=== PATIENT | female | born 1935 | race Caucasian/White ===

== ENCOUNTER 2017-11-23 12:13 | Emergency (ER) | payer MEDICARE, SELFPAY ==
[2017-11-23] MEDS ORDERED: Adacel Vial IM ONE (12:36)
--- NOTE | 2017-11-23 12:42 | ERPHSYRPT ---
- History of Present Illness Time Seen by Provider: 11/23/17 12:30 Source: patient Exam Limitations: no limitations Physician History: Pt states, she tripped over her oxygen, injured her right elbow and right knee, denies head or other injury, no LOC, chest pain, vomiting, other complaints. She states, she does not remember when was her last tetanus, according to her family, she usually refuses it. Occurred: just prior to arrival Reason for Fall: tripped Injuries/Pain Location: upper extremity, lower extremity Loss of Consciousness: no loss of consciousness Quality: aching Severity of Pain-Max: mild Severity of Pain-Current: mild Modifying Factors: Improves With: movement Associated Symptoms (Fall): denies symptoms Allergies/Adverse Reactions: codeine Allergy (Mild, Verified 01/26/15 14:08) Difficulty Breathing niacin Allergy (Mild, Verified 01/26/15 14:08) Difficulty Breathing Penicillins Allergy (Mild, Verified 01/26/15 14:08) Difficulty Breathing Sulfa (Sulfonamide Antibiotics) Allergy (Mild, Verified 01/26/15 14:08) Difficulty Breathing hydromorphone HCl [From Dilaudid] Adverse Reaction (Verified 06/16/15 17:18) morphine Adverse Reaction (Verified 06/16/15 17:18) Home Medications: Aspirin [Aspirin EC] 81 mg PO HS 08/24/14 [History] Lisinopril 20 mg PO DAILY 08/24/14 [History] Simvastatin 20 mg PO HS 08/24/14 [History] Metoprolol Tartrate 50 mg [Lopressor 50 MG] 50 mg PO BID PRN 06/16/15 [ History] Hx Tetanus, Diphtheria Vaccination/Date Given: No Hx Influenza Vaccination/Date Given: No Hx Pneumococcal Vaccination/Date Given: No - Review of Systems Constitutional: No Symptoms Musculoskeletal: Other (right elbow skin tear and right knee sweling, pain) All Other Systems: Reviewed and Negative - Past Medical History Pertinent Past Medical History: No Neurological History: No Pertinent History ENT History: No Pertinent History Cardiac History: Other Respiratory History: No Pertinent History Endocrine Medical History: No Pertinent History Musculoskeletal History: Fractures, Osteoporosis, Other GI Medical History: Irritable Bowel History: No Pertinent History Psycho-Social History: No Pertinent History Female Reproductive Disorders: No Pertinent History Other Medical History: GEOVANY IN RIGHT SHOULDER; broke right wrist - Past Surgical History Past Surgical History: Yes Neuro Surgical History: No Pertinent History Cardiac: Valve Replacement Respiratory: No Pertinent History Gastrointestinal: Appendectomy, Cholecystectomy Genitourinary: No Pertinent History Musculoskeletal: Orthopedic Surgery Female Surgical History: Hysterectomy Other Surgical History: AORTIC VALVE REPLACEMTN. GEOVANY IN RIGHT SHOULDER PLACED - Social History Smoking Status: Former smoker Exposure to second hand smoke: No Drug Use: none Patient Lives Alone: No - Nursing Vital Signs Nursing Vital Signs: Initial Vital Signs Temperature 97.8 F 11/23/17 12:22 Pulse Rate 67 11/23/17 12:22 Respiratory Rate 16 11/23/17 12:22 Blood Pressure 160/69 11/23/17 12:22 O2 Sat by Pulse Oximetry 95 11/23/17 12:22 Pain Scale Pain Intensity 4 - [place] Coma Score Best Eye Response ([place]): (4) open spontaneously Best Verbal Response ([place]): (5) oriented Best Motor Response ([place]): (6) obeys commands [place] Total: 15 - Physical Exam General Appearance: no apparent distress, alert Head Injury: no evidence of injury Eye Exam: PERRL/EOMI, eyes nml inspection ENT Exam: airway nml, No evidence of ENT injury Neck Exam: supple, trachea midline, normal inspection, No muscle spasm, No pain on movement of neck, No tenderness Respiratory/Chest Exam: normal breath sounds, No chest tenderness, No respiratory distress, No ecchymosis Cardiovascular Exam: normal heart sounds, regular rate/rhythm, normal peripheral pulses, No murmur, No edema, No JVD Gastrointestinal Exam: soft, normal bowel sounds, No tenderness, No distention, No mass, No guarding, No ecchymosis, No rebound Extremity Exam: other (right olecranon: 3-4 cm skin tear, no deformity, or deep laceration, hematoma, good ROM, and distal pulses, right anterior knee: small, infrapatellar ecchymosis, no large hematoma, or deformity, painful ROM, good distal pulses.) Peripheral Pulses: dorsalis-pedis (R): 2+, dorsalis-pedis (L): 2+ Neurologic Exam: alert, oriented x 3, cooperative, normal mood/affect, No motor deficits Skin Exam: normal color, warm, dry SpO2 Interpretation: normal Oxygen Delivery: Nasal Cannula - Course Nursing assessment & vital signs reviewed: Yes - Radiology Exams Right Elbow X-ray Interpretation: Reviewed by me, Negative Right Knee X-ray Interpretation: Interpreted by me, Negative Ordered Tests: Active Orders 24 hr Category Date Time Status Wound Care STAT Care 11/23/17 13:21 Active ELBOW (MINIMUM 3 VIEWS) Stat Exams 11/23/17 12:35 Completed KNEE (3 VIEWS) Stat Exams 11/23/17 12:35 Completed Medication Summary Discontinued Medications Generic Name Dose Route Start Last Admin Trade Name Frantz PRN Reason Stop Dose Admin Diphtheria/Tetanus/Acell Pertussis 0.5 ml 11/23/17 12:36 11/23/17 12:59 Adacel Vial IM 11/23/17 12:37 Not Given .ONCE ONE - Progress Progress: unchanged Progress Note: 11/23/17 13:25 I informed patient and her about X ray report, she refused tetanus shot after being informed about the dangers of not receiving. She is being discharged in good condition, to follow up with her physician in 2-3 days, return if severe pain, swelling, or discoloration of the fingers, toes. Counseled pt/family regarding: diagnosis, need for follow-up, rad results - Departure Time of Disposition: 13:27 Departure Disposition: Home Clinical Impression: Knee contusion Qualifiers: Encounter type: initial encounter Laterality: right Qualified Code(s): S80.01XA - Contusion of right knee, initial encounter Skin tear of elbow without complication Qualifiers: Encounter type: initial encounter Laterality: right Qualified Code(s): S51.011A - Laceration without foreign body of right elbow, initial encounter Condition: Stable Critical Care Time: No Referrals: RONNY MICHAUD [Primary Care Provider] - Instructions: Contusion (DC), Wound Care (DC) Additional Instructions: Daily sterile dressing changes of right elbow wound, return if severe pain, swelling, discharge, sudden discoloration, coldness of the fingers or toes!
[2017-11-23 12:43] VITALS: BP 160/69; O2SAT 95
--- NOTE | 2017-11-23 13:17 | XRAY ---
Indication: Pain following fall. Comparison: None 3 views of the right elbow demonstrates osteopenia, partially visualized humeral intramedullary [place], and soft tissue swelling. No other bony, articular, or soft tissue abnormalities.
[2017-11-23 13:19] VITALS: PULSE 62
--- NOTE | 2017-11-23 13:19 | XRAY ---
Indication: Pain following fall. Comparison: None 3 views of the right knee demonstrates osteopenia, minimal medial joint space narrowing, tiny suprapatellar spurring, and minimal scattered vascular calcifications. No other bony, articular, or soft tissue abnormalities.
== END 2017-11-23 13:52 | disposition home or self-care (01) ==
LOC: ED 12:13
DX: S80.01XA Contusion of right knee, initial encounter (principal); S51.011A Laceration without foreign body of right elbow, initial encounter; W01.0XXA Fall on same level from slipping, tripping and stumbling without subsequent striking against object, initial encounter; Y92.009 Unspecified place in unspecified non-institutional (private) residence as the place of occurrence of the external cause; Z79.82 Long term (current) use of aspirin; Z79.899 Other long term (current) drug therapy
CPT/HCPCS: 73080; 73562; 99284

== ENCOUNTER 2020-10-20 08:22 | Day surgery (SDC) | payer MEDICARE ==
[~2020-10-20 08:22] MED LIST: Ak-Dilate OPHTHALMIC*** 1.065 ML, Cyclogyl 1% OPHTH SOL 5 ML 1.065 ML, GATIFLOXACIN 0.5... OP ONE; BETADINE 5% OPHTHALMIC 30 ML OP ONE; Lactated Ringers 1,000 ML IV SCH; NON-FORMULARY ITEM OP ONE; TETRACAINE 0.5% STERI-UNIT SOL OP ONE; cefUROXime sodium 0.005 GM in Sodium Chloride Flush 30 ML*** 0.5 ML IJ SCH
[2020-10-20] MEDS ORDERED: Zofran 4 MG/2 ML VIAL IV PRN (09:00)
[2020-10-20] MEDS ORDERED: Lactated Ringers 1,000 ML IV ONE (09:18)
[2020-10-20] MEDS ORDERED: Epinephrine Preservative Free 1 MG/ML INTRAOP ONE (10:00)
[2020-10-20] MEDS ORDERED: LIDOCAINE HCL 1% 50 MG/5 ML VL PF IJ ONE (10:00)
[2020-10-20] MEDS ORDERED: DIPRIVAN 200 MG/20 ML IV ONE (11:04)
[2020-10-20 11:44] VITALS: O2SAT 95
[2020-10-20 12:16] VITALS: BP 114/62; PULSE 64
== END 2020-10-20 12:15 | disposition home or self-care (01) ==
LOC: SDC 08:22
PROVIDERS: ATTEND Ophthalmology
DX: H25.812 Combined forms of age-related cataract, left eye (principal); Z79.899 Other long term (current) drug therapy; I10 Essential (primary) hypertension; E78.5 Hyperlipidemia, unspecified; Z86.79 Personal history of other diseases of the circulatory system
CPT/HCPCS: 99100; C1780; J0171; J2001; J2704; A9270-GY

== ENCOUNTER 2020-11-24 07:23 | Day surgery (SDC) | payer MEDICARE ==
[2020-11-24] MEDS ORDERED: Lactated Ringers 1,000 ML IV ONE (07:41)
[2020-11-24] MEDS ORDERED: Zofran 4 MG/2 ML VIAL IV PRN (09:00)
[2020-11-24] MEDS ORDERED: Epinephrine Preservative Free 1 MG/ML INTRAOP ONE (09:00)
[2020-11-24] MEDS ORDERED: LIDOCAINE HCL 1% 50 MG/5 ML VL PF IJ ONE (09:00)
[2020-11-24] MEDS ORDERED: ROBINUL ONE (09:30)
[2020-11-24] MEDS ORDERED: DIPRIVAN 200 MG/20 ML IV ONE (09:30)
[2020-11-24 10:48] VITALS: BP 155/76; PULSE 97; O2SAT 94
== END 2020-11-24 10:40 | disposition home or self-care (01) ==
LOC: SDC 07:23
PROVIDERS: ATTEND Ophthalmology
DX: H25.811 Combined forms of age-related cataract, right eye (principal); Z79.899 Other long term (current) drug therapy; I10 Essential (primary) hypertension; I51.9 Heart disease, unspecified; E78.00 Pure hypercholesterolemia, unspecified
CPT/HCPCS: C1780; J0171; J2001; J2704; A9270-GY